=== PATIENT | female | born 1990 | race Caucasian/White ===

== ENCOUNTER 2018-12-02 09:16 | Outpatient (CLI) | payer OTHER | END 2018-12-02 09:23 | disposition home or self-care (01) | LOC: SONOGRAMA 09:16 | DX: E04.2 Nontoxic multinodular goiter (principal) ==

== ENCOUNTER 2023-10-14 12:55 | Outpatient (CLI) | payer OTHER | END 2023-10-14 12:58 | disposition home or self-care (01) | LOC: SONOGRAMA 12:55 | PROVIDERS: ATTEND Pathology Anatomic Pathology & Clinical Pathology | DX: D34 Benign neoplasm of thyroid gland (principal); E07.89 Other specified disorders of thyroid; E04.1 Nontoxic single thyroid nodule ==